=== PATIENT | male | born 1960 | race Caucasian/White ===

== ENCOUNTER 2021-10-06 10:47 | Inpatient (IN) | payer BC ==
[~2021-10-06] VITALS: Ht 170.2 cm; Wt 85.6 kg
[2021-10-18 08:39] LABS: HEMATOCRIT 46.9 % (42.0-52.0); HEMOGLOBIN 15.9 g/dl (13.5-18.0); MEAN CELL VOLUME 86 fl (80.0-100.0); MEAN CORPUSCULAR HEMOGLOBIN 29 pg (27-31); MEAN CORPUSCULAR HGB CONC 34 g/dl (33.0-37.0); MEAN PLATELET VOLUME 10.6 fl (7.4-10.4); PLATELET COUNT 280 K/mm3 (130-400); RED BLOOD COUNT 5.45 M/mm3 (4.20-5.60); REDCELL DISTRIBUTION WIDTH-CV 13.5 % (11.5-14.5)
[2021-10-18 08:50] LABS: CALCIUM 9.8 mg/dL (8.4-10.2); CREATININE, serum 1.06 mg/dL (0.72-1.25); POTASSIUM 4.1 mmol/L (3.5-4.5)
[2021-10-19] VITALS (11 sets, daily range): BP systolic 148–157; BP diastolic 80–108; PULSE 72–95; TEMP 97.6–99
[2021-10-19] MEDS ORDERED: PROCARDIA XL 3030 MG PO (06:11)
[2021-10-19] MEDS ORDERED: ARMOUR THYROID60 MG PO (06:12)
[2021-10-19] MEDS ORDERED: THYROTAIN PO (06:13)
[2021-10-19] MEDS ORDERED: [UNRECOGNIZED DRUG - OTHER] PO (06:14)
[2021-10-19] MEDS ORDERED: [UNRECOGNIZED DRUG - OTHER] PO (06:15)
[2021-10-19] MEDS ORDERED: GRAPE SEED EXTR1 CAP PO (06:15)
[2021-10-19] MEDS ORDERED: VITAMIND3 5000 PO (06:16)
[2021-10-19] MEDS ORDERED: DHEA25 M3 PO (06:35)
[2021-10-19] MEDS ORDERED: [UNRECOGNIZED DRUG - OTHER] PO (06:36)
[2021-10-19] MEDS ORDERED: ORTHOMEGA PO (06:36)
[2021-10-19] MEDS ORDERED: [UNRECOGNIZED DRUG - OTHER] PO (06:37)
[2021-10-19] MEDS ORDERED: [UNRECOGNIZED DRUG - OTHER] PO (06:38)
[2021-10-19 06:40] LABS: BASO % 0.4 % (0.0-2.0); EOS # 0.1 K/mm3 (0.0-0.7); GRAN # 5.7 K/mm3 (1.4-6.5); GRAN % 57.1 % (42.2-75.2); HEMATOCRIT 47.6 % (42.0-52.0); HEMOGLOBIN 16.4 g/dl (13.5-18.0); LYMPH # 3.2 K/mm3 (1.2-3.4); LYMPH % 31.7 % (20.0-51.0); MEAN CELL VOLUME 85 fl (80.0-100.0); MEAN CORPUSCULAR HEMOGLOBIN 29 pg (27-31); MEAN CORPUSCULAR HGB CONC 35 g/dl (33.0-37.0); MEAN PLATELET VOLUME 11.6 fl (7.4-10.4); MONO % 9.6 % (1.7-9.3); PLATELET COUNT 300 K/mm3 (130-400); RED BLOOD COUNT 5.62 M/mm3 (4.20-5.60); REDCELL DISTRIBUTION WIDTH-CV 13.4 % (11.5-14.5)
[2021-10-19 06:55] LABS: CALCIUM 9.5 mg/dL (8.4-10.2); CREATININE, serum 1.12 mg/dL (0.72-1.25); POTASSIUM 5.2 mmol/L (3.5-4.5)
--- NOTE | 2021-10-19 07:05 | NUR ---
Notified RUSLAN Brady about BMP results from today vs yesterday. Dr. Johnston also notified.
--- NOTE | 2021-10-19 07:10 | NUR ---
Patient's black bag labeled and brought to PACU.
[2021-10-19] MEDS ORDERED: NORCO 325 MG-51 TAB PO (07:19)
[2021-10-19 10:31] LABS: CALCIUM 8.9 mg/dL (8.4-10.2); CREATININE, serum 1.26 mg/dL (0.72-1.25)
--- NOTE | 2021-10-19 14:30 | NUR ---
PT ARRIVED TO THE FLOOR FROM OR, VITALS TAKEN PER PROTOCOL, SCD APPLIED, INSTRUCTED TO BE ON CLEAR LIQUIDS, FAMILY AT BEDSIDE, WITH INCISION SKIN GLUED CLEAN, DRY AND INTACT, PAIN ASSESSED, WILL CONTINUE TO MONITOR.
[2021-10-20 03:32] VITALS: BP 142/88; PULSE 73; TEMP 98.4
[2021-10-20 06:06] LABS: HEMATOCRIT 42.4 % (42.0-52.0); MEAN CELL VOLUME 88 fl (80.0-100.0); MEAN CORPUSCULAR HEMOGLOBIN 29 pg (27-31); MEAN CORPUSCULAR HGB CONC 33 g/dl (33.0-37.0); MEAN PLATELET VOLUME 11.2 fl (7.4-10.4); PLATELET COUNT 235 K/mm3 (130-400); REDCELL DISTRIBUTION WIDTH-CV 13.8 % (11.5-14.5)
[2021-10-20 06:19] LABS: HEMOGLOBIN 13.8 g/dl (13.5-18.0)
[2021-10-20 06:21] LABS: CREATININE, serum 1.74 mg/dL (0.72-1.25); POTASSIUM 3.7 mmol/L (3.5-4.5)
--- NOTE | 2021-10-20 06:35 | NUR ---
PT WEANED TO RA, IV TO INT, TAKING PO WELL, IVAN COLUNGA'D @0600, UP AMBULATING AD DIDIER, PAIN CONTROLLED WITH TYLENOL. ABD SITES CDI, ORDERING REGULAR DIET FOR BREAKFAST.
[2021-10-20 07:02] LABS: BAND 2 % (0-10); LYMPHOCYTE 18 % (20.0-51.0); NEUTROPHILS 73 % (42.0-75.2); PLATELET ESTIMATE NORMAL (NORMAL)
[2021-10-20 08:14] VITALS: BP 155/83; PULSE 85; TEMP 98.6
--- NOTE | 2021-10-20 09:44 | NUR ---
Pt doing well this morning, minimal pain complaints. Pt voiding without difficulty since have downs catheter out. Tolerated PO diet. Pt has been up ambulating in the halls without difficulty. Plan for discharge today after lunch.
--- NOTE | 2021-10-20 09:50 | NUR ---
[facility] [employer]acker met with patient to discuss discharge planning. Patient lives in [place] with his , Kelly (ph#[phone]) who is at bedside. Patient sees Dr. Sanders for primary care and obtains medications from [facility] in [place] with no difficulties. Patient does not use any DME and is independent with ADLS. Patient seen by VASQUEZ walking in the halls with his independently. Patient believes he has DPOA-HC completed which designates his . Patient plans to return home at time of discharge.
--- NOTE | 2021-10-20 10:19 | NUR ---
Initial visit; Patient and thanked [employer] for looking in on him and offering God's blessings. [employer] also wished them well.
[2021-10-20 11:15] VITALS: BP 145/87; PULSE 81; TEMP 98.4
== END 2021-10-20 15:25 | disposition home or self-care (01) | DRG 658 ==
LOC: INPTSU 10-19 05:44 → SURG 10-19 07:30
PROVIDERS: ADMIT Urology
PROC: 8E0W3CZ Robotic Assisted Procedure of Trunk Region, Percutaneous Approach (ICD-10-PCS; 2021-10-19)
PROC: 0TT14ZZ Resection of Left Kidney, Percutaneous Endoscopic Approach (ICD-10-PCS; principal; 2021-10-19 07:30)
DX: D30.02 Benign neoplasm of left kidney (principal); I10 Essential (primary) hypertension; E07.9 Disorder of thyroid, unspecified; Z85.828 Personal history of other malignant neoplasm of skin
CPT/HCPCS: A4314; A9284; J0360; J0690; J1100; J1650; J2250; J2405; J2704; J2795; J3010; J7120